=== PATIENT | female | born 2000 | race Caucasian/White ===

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

== ENCOUNTER → 2022-05-03 15:15 | Outpatient (CLI) | payer OTHER, MEDICAID, SELFPAY ==
--- NOTE | 2022-05-03 15:17 | DI.RAD.S_ITS ---
PROCEDURE: XR KNEE LT 3V INDICATIONS: left knee pain TECHNIQUE: 3 views of the knee were acquired. COMPARISON: None. FINDINGS: Bones: No fractures or dislocations. No suspicious bony lesions. Soft tissues: No joint effusion. No suspicious soft tissue calcifications. IMPRESSION: No acute fracture. No osseous lesion. If symptoms and/or clinical suspicion for pathology persist, further assessment with repeat, or advanced imaging (e.g., CT, MRI, or bone scan) may be helpful for further assessment. Dictated by: Lebron Jackson M.D. on 05/03/2022 at 16:21 Transcribed by: JOHN on 05/03/2022 at 16:22 Approved by: Lebron Jackson M.D. on 05/03/2022 at 16:24
== END ==
PROVIDERS: PCP Family Medicine; Referring Provider Family Medicine; Visit Provider Family Medicine
DX: M25.562 Pain in left knee (principal)
CPT/HCPCS: 73562

== ENCOUNTER 2024-10-21 09:55 | Day surgery (SDC) | payer OTHER, SELFPAY ==
[2024-10-21] VITALS (7 sets, daily range): BP systolic 87–125; BP diastolic 37–75; PULSE 54–71; RESP 11–20; TEMP 36.1–36.5; O2SAT 98–100
--- NOTE | 2024-10-21 | PATH_ITS ---
[facility] Accession Number: [id number] No. of containers..02 Tissue . 01 Material submitted: . PART A: stomach - ANTRUM PART B: esophagus, E-G Junction - GE JUNCTION . 01 Diagnosis: Part A: ANTRUM: Gastric mucosa with minimal chronic inflammation. No Helicobacter organisms identified. No intestinal metaplasia, dysplasia, or malignancy identified. . Part B: GE JUNCTION: Gastroesophageal junction mucosa with changes consistent with reflux. No goblet cell metaplasia or dysplasia identified. [facility] 10/25/20241746 Local . 01 Electronically signed: . Bubba Archer MD, Pathologist NPI- [id number] . 01 Gross description: . Part A: ANTRUM: Received in formalin are 2 fragment(s) of rivas, soft tissue measuring 0.1 x 0.1 x 0.1 cm to 0.4 x 0.3 x 0.2 cm submitted entirely in 1 cassette(s) . Part B: GE JUNCTION: Received in formalin is 1 fragment(s) of rivas, soft tissue measuring 0.3 x 0.2 x 0.2 cm submitted entirely in 1 cassette(s) /[facility] 10/25/20241746 Local . 01 Microscopic: . Part A: ANTRUM: An immunohistochemical stain was performed to evaluate for Helicobacter organisms and is negative. The control stains appropriately. * This test was developed and the performance characteristics were validated by [employer]. It has not been cleared or approved by the Food and Drug Administration. . Part B: GE JUNCTION: An ABPAS stain was performed to evaluate for goblet cell metaplasia and is negative. The control stains appropriately. . 01 Pathologist provided ICD-10: K21.00, K29.30 . 01 CPT . 319138, 660328, [id number], [id number] Specimen Comment: A courtesy copy of this report has been sent to [facility] Performed at: [address] [address], [place], [place] [id number] MD Bubba Archer MD Phone: [phone]
[2024-10-21] MEDS: LACTATED RINGERS 1,000 ML 42 ML IV (11:53)
--- NOTE | 2024-10-21 11:55 | PM.PREOP ---
Pre-operative Note Interval Note History & Physical reviewed/Exam performed by Physician: Yes Changes to H&P: No H&P completed within 30 days and has changed as indicated here:: Per the patient's report, Patient had some water upon arrival. Discussed with anesthesia. We will proceed.
--- NOTE | 2024-10-21 12:07 | PM.OP.EGD ---
Operative Date/Time/Diagnoses Date of procedure: 10/21/24 Time of procedure: 12:07 Pre-op diagnosis: Reflux refractory to PPIs for 7 years Post-op diagnosis: same (Gastritis, esophagitis) Procedure & Clinicians Study performed: EGD with biopsy of antrum and GE junction Same procedure as scheduled: Yes Indications: On PPIs for 7 years with continued reflux symptoms Surgeon: Conor Brown Procedure Notes SCOAP/Timeout: Performed Procedure in detail: Patient was brought to the endo suite. Mac was induced. Bite block placed. Lubricated gastroscope was inserted through the bite block to the 2nd portion of the duodenal. The duodenal appeared normal. There was some antral gastritis, mild and biopsies were obtained. Retroflexed view did not demonstrate a hiatal hernia. Her Z-line is 38 cm from the incisors. There was some irregularity and a very small portion of the Z-line. Two biopsies of the GE junction were obtained. The remainder of the esophagus was normal. Gastroscope was withdrawn. Patient tolerated the procedure well was transferred to PACU in stable condition for anticipated same-day discharge. Sedation minutes: 3 Findings: gastritis Specimen(s): other (1. Antrum2. GE junction) Complications: none Impression: Mild gastritis Post-procedure Recommendations: Reflux diet and Continue medication(s) Follow up: as needed Disposition: PACU
== END 2024-10-21 12:42 | disposition home or self-care (01) ==
PROVIDERS: PCP Family Medicine; Referring Provider Surgery; Visit Provider Surgery
PROC: 0DJ08ZZ Inspection of Upper Intestinal Tract, Via Natural or Artificial Opening Endoscopic (ICD-10-PCS; CPT 43239; principal; 2024-10-21 11:15)
DX: K21.9 Gastro-esophageal reflux disease without esophagitis (principal); K20.90 Esophagitis, unspecified without bleeding; K29.50 Unspecified chronic gastritis without bleeding
CPT/HCPCS: 43239; J2704

== ENCOUNTER → 2024-10-29 08:24 | Outpatient (CLI) | payer OTHER, SELFPAY ==
--- NOTE | 2024-10-29 08:25 | DI.US.S_ITS ---
PROCEDURE: US ABDOMEN LIMITED INDICATIONS: EPIGASTRIC PAIN TECHNIQUE: Real-time scanning was performed of the abdominal and retroperitoneal organs, with image documentation. COMPARISON: None. FINDINGS: Liver: Liver is normal in size and homogeneous in echotexture. Gallbladder: No gallstones. No wall thickening. No pericholecystic edema. Negative sonographic Weiss's sign. Biliary ducts: Intrahepatic bile ducts are non-dilated. Extrahepatic bile duct caliber measures 4 mm. Normal is 6-7 mm or less in diameter, or 10 mm or less post-cholecystectomy. Pancreas: Visualized portions of the pancreas are sonographically normal. Miscellaneous: No free abdominal fluid. IMPRESSION: No acute abnormality. No gallbladder pathology. Dictated by: Compa Donovan M.D. on 10/29/2024 at 15:46 Approved by: Compa Donovan M.D. on 10/29/2024 at 15:47
== END ==
PROVIDERS: PCP Family Medicine; Referring Provider Surgery; Visit Provider Surgery
DX: R10.13 Epigastric pain (principal)
CPT/HCPCS: 76705

== ENCOUNTER → 2025-08-06 10:51 | Outpatient (CLI) | payer OTHER, SELFPAY ==
[2025-08-06 11:46] LABS: Add Manual Diff / Slide Review NO; Hematocrit 39.1 % (36-46); Hemoglobin 13.2 g/dL (12.0-16.0); Lymphocytes Absolute Auto 1600 /uL (1100-4500); Mean Corpuscular HGB Conc 33.8 % (30-36); Mean Corpuscular Hemoglobin 29.5 PG (26-34); Mean Corpuscular Volume 87.2 fL (80-100); Platelet Count 209 X10^3/uL (150-400)
[2025-08-06 12:04] LABS: Alanine Aminotransferase 13 IU/L (<35); Albumin 4.6 g/dL (3.5-5.0); Albumin Globulin Ratio 1.4 (1.0-2.8); Alkaline Phosphatase 52 U/L (38-126); Blood Urea Nitrogen 15 mg/dL (7-17); Calcium 8.8 mg/dL (8.4-10.2); Carbon Dioxide 27 mmol/L (22-32); Chloride 105 mmol/L (98-107); Estimated Glomerular Filt Rate > 60 mL/min (>60); Globulin 3.3 g/dL (1.7-4.1); Glucose 98 mg/dL (70-99); HEMOLYSIS < 15 (0-50); Potassium 4.0 mmol/L (3.4-5.1); Sodium 140 mmol/L (137-145); Total Protein 7.9 g/dL (6.3-8.2)
[2025-08-06 12:33] LABS: TSH w/ Reflex to FT4 1.45 uIU/mL (0.47-4.68)
[2025-08-09 14:38] LABS: Deamidated Gliadin Ab IgA 3 units (0-19); Deamidated Gliadin Ab IgG 1 units (0-19); Immunoglobulin A,Qn 145 mg/dL (87-352)
== END ==
PROVIDERS: PCP Family Medicine; Referring Provider Family Medicine; Visit Provider Family Medicine
DX: R19.8 Other specified symptoms and signs involving the digestive system and abdomen (principal)
CPT/HCPCS: 36415; 80053; 82784; 83516; 84443; 85025